=== PATIENT | male | born 1950 | race Caucasian/White ===

== ENCOUNTER 2019-09-25 06:00 | Emergency (ER) | payer MEDICARE ==
[2019-09-25 06:10] VITALS: TEMP 98.2
[2019-09-25] MEDS ORDERED: IPRATROPIUM-ALBUTEROL 3 ML NEB INHALATION STA (06:16)
--- NOTE | 2019-09-25 06:19 | ED ---
General Adult HPI - General Chief complaint: Shortness of Breath Stated complaint: KAYLA, URI Time Seen by Provider: 09/25/19 06:12 Source: patient, RN notes reviewed Mode of arrival: ambulatory Limitations: no limitations - History of Present Illness Initial comments: This is a 69-year-old male presents emergency Department chief complaint of cough congestion 2 days. Patient was sent from [facility] for evaluation. Patient denies any current chest pain or shortness of breath. He states that he does have some history of shortness breath secondary to COPD and continues to smoke. Patient states she has slight productive cough denies any sore throat, ear pain, headache or dizziness no chest pain. Patient is at [facility] for rehab from crack cocaine. Patient is on no current antibiotics no breathing treatments. Patient denies any leg swelling, calf pain. No recent long distance traveling no history of DVT. - Related Data Previous Rx's Medication Instructions Recorded Azithromycin [Zithromax Z-pack] 0 mg PO DIRECTED #1 pack 09/25/19 Tobramycin [Tobrex 0.3% Ophth Soln] 1 drop BOTH EYES Q4HR #5 ml 09/25/19 predniSONE 50 mg PO DAILY #5 tab 09/25/19 Allergies Allergy/AdvReac Type Severity Reaction Status Date / Time Penicillins Allergy Unknown Verified 09/25/19 06:11 Childhood Review of Systems ROS Statement: Those systems with pertinent positive or pertinent negative responses have been documented in the HPI. ROS Other: All systems not noted in ROS Statement are negative. Past Medical History Past Medical History: COPD, Diabetes Mellitus Additional Past Medical History / Comment(s): Prostate ca, TBI History of Any Multi-Drug Resistant Organisms: None Reported Past Surgical History: Appendectomy, Prostate Surgery Past Psychological History: No Psychological Hx Reported Smoking Status: Current every day smoker Past Alcohol Use History: None Reported Past Drug Use History: Cocaine, Marijuana General Exam Limitations: no limitations General appearance: alert, in no apparent distress, anxious Head exam: Present: atraumatic, normocephalic, normal inspection Eye exam: Present: PERRL, EOMI, conjunctival injection (Bilateral with exudate). Absent: normal appearance, scleral icterus, periorbital swelling ENT exam: Present: normal exam, normal oropharynx, mucous membranes moist, TM's normal bilaterally, normal external ear exam Neck exam: Present: normal inspection, full ROM. Absent: tenderness, meningismus, lymphadenopathy Respiratory exam: Present: wheezes, decreased breath sounds, other (Patient is resting comfortably in the bed and no signs of distress, pulse ox 92). Absent: normal lung sounds bilaterally, respiratory distress, rales, rhonchi, stridor Cardiovascular Exam: Present: regular rate, normal rhythm, normal heart sounds. Absent: systolic murmur, diastolic murmur, rubs, gallop, clicks Extremities exam: Absent: pedal edema Course Vital Signs 09/25/19 09/25/19 09/25/19 06:06 06:27 06:41 Temperature 98.2 F Pulse Rate 73 76 76 Respiratory 19 Rate Blood Pressure 122/72 O2 Sat by Pulse 92 L Oximetry 09/25/19 07:06 Temperature Pulse Rate Respiratory 24 Rate Blood Pressure O2 Sat by Pulse Oximetry Medical Decision Making - Medical Decision Making Chest x-ray was reviewed shows evidence of COPD, patient was reevaluated after breathing treatment states he feels greatly improved. Patient's pulse ox is currently 97 after breathing treatment. Patient be discharged with antibiotics, steroids, inhaler.I counseled the patient for smoking cessation for greater than 3 minutes - Lab Data Lab Results 09/25/19 Range/Units 06:19 Influenza Type A RNA Not Detected (Not Detectd) Influenza Type B (PCR) Not Detected (Not Detectd) Disposition Clinical Impression: COPD exacerbation, URI (upper respiratory infection), Conjunctivitis Disposition: HOME SELF-CARE Condition: Stable Instructions (If sedation given, give patient instructions): Acute Bronchitis (ED), Bronchospasm (ED) Additional Instructions: Please return to the Emergency Department if symptoms worsen or any other concerns. Prescriptions: predniSONE 50 mg PO DAILY #5 tab Tobramycin [Tobrex 0.3% Ophth Soln] 1 drop BOTH EYES Q4HR #5 ml Azithromycin [Zithromax Z-pack] 0 mg PO DIRECTED #1 pack Is patient prescribed a controlled substance at d/c from ED?: No Referrals: Nonstaff,Physician [Primary Care Provider] - 1-2 days
--- NOTE | 2019-09-25 07:16 | XR ---
EXAMINATION TYPE: XR chest 2V DATE OF EXAM: 09/25/2019 COMPARISON: NONE HISTORY: Cough and congestion TECHNIQUE: Frontal and lateral views of the chest are obtained. FINDINGS: There is no focal air space opacity, pleural effusion, or pneumothorax seen. Flattening of the diaphragms and pulmonary hyperinflation on the lateral view suggesting underlying COPD. Prominen ce of the main pulmonary arteries. The cardiac silhouette size is within normal limits. The osseous structures are intact. IMPRESSION: No acute cardiopulmonary process. Findings suggesting underlying COPD and prominence of the main pulmonary arteries that may correlate with underlying pulmonary artery hypertension.
[2019-09-25 07:33] VITALS: BP 106/54; PULSE 86; RESP 18
== END 2019-09-25 08:13 | disposition home or self-care (01) ==
LOC: EC 06:00
DX: J44.1 Chronic obstructive pulmonary disease with (acute) exacerbation (principal); J06.9 Acute upper respiratory infection, unspecified; H10.9 Unspecified conjunctivitis; Z71.6 Tobacco abuse counseling; F17.200 Nicotine dependence, unspecified, uncomplicated; Z88.0 Allergy status to penicillin; Z85.46 Personal history of malignant neoplasm of prostate; Z98.890 Other specified postprocedural states
CPT/HCPCS: 71046; 87502; 94640; 99285; 99406